=== PATIENT | female | born 1935 | race Caucasian/White ===

== ENCOUNTER 2021-01-08 13:54 | Inpatient (IN) | payer OTHER, MEDICARE ==
[~2021-01-08] VITALS: Ht 162.6 cm; Wt 41.7 kg
[2021-01-08 14:00] VITALS: BP_SYST 113
--- NOTE | 2021-01-08 14:12 | NUR ---
Pt ARNALDO with complaints of unwitnessed fall from her living facility. Unable to obtain any other information from the patient. She is kicking and biting staff and screaming for her "mom". Moving all extremities equal and has no complaints of pain. Unable to obtain vital signs due to patient not cooperating. No deformities or bruising noted.
--- NOTE | 2021-01-08 14:20 | NUR ---
PT BIBA FROM [facility] FOR LEFT SIDED RIB PAIN. PER EMS PT HAD AN UNWITNESSED FALL AT FACILITY, PT IS ALTERED UPON ARRIVAL, AGRESSIVE WITH STAFF. PT HAD COMPLAINED OF RIB PAIN. AAOX1, V/S STABLE UPON ARRIVAL
--- NOTE | 2021-01-08 14:30 | NUR ---
ER DR. ROSS AT THE BEDSIDE EXAMINING PT
[2021-01-08] MEDS ORDERED: LORazepam 2 MG/ML VIAL IM ONE ×3 (14:45→22:00)
[2021-01-08] MEDS ORDERED: KETOROLAC TROMETHAMINE 60 MG/2 ML VIAL IM ONE (14:45)
--- NOTE | 2021-01-08 14:45 | NUR ---
Security at bedside. Pt screaming, hitting and attempting to bite staff.
--- NOTE | 2021-01-08 14:46 | NUR ---
IM Ativan and Toradol given.
--- NOTE | 2021-01-08 15:00 | NUR ---
Xray at bedside. Pt is combative and not able to complete xray.
[2021-01-08] MEDS ORDERED: GABA-580 PO (15:35)
[2021-01-08] MEDS ORDERED: LORA-258 PO (15:35)
[2021-01-08] MEDS ORDERED: SIMV-43 PO (15:35)
[2021-01-08] MEDS ORDERED: CIPR-260 PO (15:35)
[2021-01-08] MEDS ORDERED: CARB1TAB10 PO (15:35)
[2021-01-08] MEDS ORDERED: POLY119P2 PO (15:35)
[2021-01-08] MEDS ORDERED: ACET500C21 PO (15:35)
[2021-01-08] MEDS ORDERED: DOCU-192 PO (15:35)
[2021-01-08] MEDS ORDERED: PIMA34CA PO (15:35)
[2021-01-08] MEDS ORDERED: LOSA50TA28 PO (15:35)
[2021-01-08] MEDS ORDERED: METO25TA6 PO (15:35)
--- NOTE | 2021-01-08 15:35 | NUR ---
Medication reconciliation completed with information provided by ABA DYER. Any prior medication reconciliation on file was reviewed and corrected.
--- NOTE | 2021-01-08 15:40 | NUR ---
xray at at bedside. Pt combative and not able to do xray.
--- NOTE | 2021-01-08 15:48 | NUR ---
SON AT THE BEDSIDE
--- NOTE | 2021-01-08 15:50 | NUR ---
PORTABLE X-RAY AT THE BEDSIDE
--- NOTE | 2021-01-08 16:33 | NUR ---
Patient transported to radiology via GURNEY, accompanied by STAFF.
[2021-01-08] MEDS ORDERED: cefTRIAXone 1 GM IVPB PREMIX 50 ML IV ONE (17:15)
[2021-01-08 17:29] LABS: BILIRUBIN,URINE NEGATIVE (NEGATIVE); BLOOD, URINE NEGATIVE (NEGATIVE); CLARITY/URINE CLEAR (CLEAR); COLOR,URINE YELLOW (YELLOW); GLUCOSE,URINE NEGATIVE (NEGATIVE); KETONES,URINE TRACE (NEGATIVE); LEUKOCYTE ESTERASE ,URINE NEGATIVE (NEGATIVE); NITRITE, URINE NEGATIVE (NEGATIVE); PROTEIN URINE NEGATIVE (NEGATIVE); UROBILINOGEN,URINE 0.2 (0.2-1.0)
--- NOTE | 2021-01-08 17:30 | NUR ---
# 20 gauge angiocath placed to RFA. Use of asceptic technique. Opsite placed over site. Blood return noted. Blood for lab drawn from site. Flushed with 10 cc of normal saline. No evidence of infiltration noted. Patient tolerated well.
[2021-01-08 18:01] LABS: BASOPHILS # (AUTO) 0.1 K/uL (0.0-0.2); BASOPHILS % (AUTO) 0.6 % (0.0-2.0); HEMATOCRIT 33.7 % (36-48); HEMOGLOBIN 11.2 g/dL (12.0-16.0); LYMPHOCYTES # (AUTO) 0.9 K/uL (1.0-5.5); LYMPHOCYTES % (AUTO) 6.2 % (20.5-51.5); MEAN CORPUSCULAR HEMOGLOBIN 31 pg (27-31); MEAN CORPUSCULAR HGB CONC 33 % (32-36); MEAN CORPUSCULAR VOLUME 93 fL (79.0-98.0); MONOCYTES # (AUTO) 0.7 K/uL (0.0-1.0); MONOCYTES % (AUTO) 4.7 % (1.7-9.3); NEUTROPHILS # (AUTO) 13.1 K/uL (1.8-7.7); NEUTROPHILS % (AUTO) 88.5 % (40.0-70.0); PLATELET COUNT (AUTO) 237 K/uL (130-430); RED BLOOD CELL COUNT(AUTO) 3.61 MIL/uL (4.2-6.2); RED CELL DISTRIBUTION WIDTH 12.9 % (9.0-15.0); WHITE BLOOD COUNT (AUTO) 14.8 K/uL (4.8-10.8)
[2021-01-08 18:03] LABS: ANION GAP 10 (5-15); CALCIUM 8.4 mg/dL (8.4-11.0); CHLORIDE 104 mmol/L (98-107); CREATININE 0.85 mg/dL (0.55-1.30); GLUCOSE 98 mg/dL (70-99); POTASSIUM 3.7 mmol/L (3.5-5.1); SODIUM SERUM 138 mmol/L (136-145); UREA NITROGEN, BLOOD 16 mg/dL (8-21)
--- NOTE | 2021-01-08 18:06 | NUR ---
Patient transported to radiology via GURNEY, accompanied by STAFF.
[2021-01-08 18:10] LABS: ALANINE AMINOTRANSFERASE 6 U/L (12-78); ALBUMIN 3.6 g/dL (3.4-4.8); ASPARTATE AMINOTRANSFERASE 18 U/L (10-37); TOTAL BILIRUBIN 0.8 mg/dL (0.0-1.0)
--- NOTE | 2021-01-08 18:18 | NUR ---
ADMISSION ORDERS RECEIVED FROM DR. DONOVAN
--- NOTE | 2021-01-08 18:20 | NUR ---
CALL FOR BED PLACEMENT, TAWANA BLANCA. CHARGE NURSE TO CALL BACK
--- NOTE | 2021-01-08 19:11 | NUR ---
LAB AT THE BEDSIDE FOR LACTIC #2 DRAW
--- NOTE | 2021-01-08 19:16 | NUR ---
REPORT GIVEN TO DELVIN CARROLL FOR CONTINUING CARE
--- NOTE | 2021-01-08 19:55 | NUR ---
Patient will be admitted to care of Dr. Rodriguez. Admitted to TELE unit. Will go to room 132A. Belongings list completed. Complete and up to date summary report printed. SBAR report to be given at bedside with opportunity for questions.
[2021-01-08 20:30] VITALS: BP_SYST 162
--- NOTE | 2021-01-08 20:32 | NUR ---
ADMISSION NOTE Received patient from ER via myranda, received report from DELVIN Nickerson. Patient admitted with diagnosis of Multiple Falls,LeftRib Fracture. Patient oriented to hospital routine, call light, toileting and safety-patient verbalized understanding.
--- NOTE | 2021-01-08 20:45 | NUR ---
INITIAL NOTES: PT IS AGITATED ; RESTLESS ; PT IS ON O2 2L NC SAT ABOVE 95% ; BP IS SLIGHTLY HIGH WILL RECHECK IF NEEDED WILL NOTIFY MD ; ASSESSMENT DONE ; NOTICED MULTIPLE DISCOLORATION TO LUKE ARMS ; LEFT LATERAL CHEST/ ABDOMEN ; LUKE KNEES WITH DRY SCABS ; WILL TAKE PICTURES LATER. PT HAS SUBCUTANEOUS AIR . ABLE TO FEEL IT ON THE LEFT CHEST , PT HAS PNEUMOTHORAX 20-25% ; WILL KEEP PT ON CONTINUOS PULSE OX , BED IN LOW AND LOCK POSITION , CALL GALDAMEZ IN REACH ; BED ALARM IS ON .
--- NOTE | 2021-01-08 21:36 | NUR ---
Paged Dr. Rodriguez
[2021-01-08] MEDS ORDERED: LevALBUTEROL HCL 1.25 MG/0.5 ML *CONC.* VIAL.NEB (XOPENEX CONC.) INH PRN (22:00)
[2021-01-08] MEDS ORDERED: DOCUSATE SODIUM 100 MG CAPSULE PO PRN (22:00)
[2021-01-08] MEDS: LORazepam 1 MG TABLET PO SCH (22:00)
--- NOTE | 2021-01-08 22:16 | NUR ---
MD CALLED BACK : TALKED WITH DR GONZALEZ FRONT DESK ATTENDANT FOR PULMO , NOTIFIED MD ABOUT THE LEFT 6TH AND 7TH RIB FRACTURE, READ HIM CT CHEST RESULT . NOTIFIED THE CURRENT VITALS SIGNS . MD STATED IF SATURATION DROPS CALL HIM OR MD WILL COME AND SEE THE PT IN THE MORNING
[2021-01-08 22:25] VITALS: BP_SYST 112
--- NOTE | 2021-01-08 22:25 | NUR ---
Paged Dr. Rodriguez
[2021-01-08] MEDS ORDERED: AZITHROMYCIN 500 MG/VIAL (ZITHROMAX) IV ONE (22:48)
[2021-01-08] MEDS ORDERED: KCL 20 mEq in D5NS 1000 mL 1,000 ML IV ONE (22:48)
[2021-01-08] MEDS: KCL 20 mEq in D5NS 1000 mL 1,000 ML IV SCH (22:56)
[2021-01-08 22:58] LABS: CKMB RELATIVE INDEX 1.5 (0.0-2.9); CREATINE KINASE MB 6.3 ng/mL (0-3.6)
[2021-01-08] MEDS: ENOXAPARIN SODIUM 40 MG/0.4 ML SYRINGE SUBCUT SCH (23:02)
[2021-01-08] MEDS: CARBIDOPA/LEVODOPA 25/100 MG TABLET PO SCH (23:03)
[2021-01-08] MEDS: traMADol HCL HCL 50 MG TABLET (ULTRAM) PO SCH (23:03)
[2021-01-08] MEDS: METOPROLOL TARTRATE 25 MG TABLET PO SCH (23:05)
[2021-01-08] MEDS: AZITHROMYCIN 500 MG in NS 250 ML IV SCH (23:06)
--- NOTE | 2021-01-08 23:14 | NUR ---
Paged Dr. Rodriguez
--- NOTE | 2021-01-08 23:18 | NUR ---
MD CALLED : DR DONOVAN CALLED AND NOTIFIED THAT PT IS VERY AGITATED AFTER ATIVAN 1 MG IM , AND GETTING OUT OF BED , PULLING IV AND TELEMONITOR . MD ORDERED SITTER AT ED SIDE ; CALLED BACK AND GAVE ORDER FOR HALDOL 3 MG IM X1 NOW .
--- NOTE | 2021-01-08 23:20 | NUR ---
HIGH ALERT NOTE: Called back at [phone] identified within the medical roster to verify physician authenticity.
[2021-01-08] MEDS ORDERED: HALOPERIDOL LACTATE 5 MG/ML VIAL IM ONE (23:30)
--- NOTE | 2021-01-08 23:50 | NUR ---
PHAM CATH: # 16 FR Pham catheter with 10 cc bulb inserted with use of sterile technique. Bulb inflated with 10 cc sterile water. Immediate return of 175 cc yellow color urine noted. Bedside drainage bag placed below level of bladder. Urine sample collected and sent to lab as per protocol , Pt tolerated procedure well.
[2021-01-09] MEDS: LevALBUTEROL HCL 1.25 MG/0.5 ML *CONC.* VIAL.NEB (XOPENEX CONC.) INH SCH ×4 (00:09→23:16)
[2021-01-09 01:59] LABS: BILIRUBIN,URINE NEGATIVE (NEGATIVE); BLOOD, URINE NEGATIVE (NEGATIVE); CLARITY/URINE CLEAR (CLEAR); COLOR,URINE YELLOW (YELLOW); GLUCOSE,URINE NEGATIVE (NEGATIVE); KETONES,URINE NEGATIVE (NEGATIVE); LEUKOCYTE ESTERASE ,URINE NEGATIVE (NEGATIVE); NITRITE, URINE NEGATIVE (NEGATIVE); PH,URINE 5.5 (5.0-8.0); PROTEIN URINE NEGATIVE (NEGATIVE); UROBILINOGEN,URINE 0.2 (0.2-1.0)
[2021-01-09 02:00] VITALS: BP_SYST 119
--- NOTE | 2021-01-09 04:00 | NUR ---
NEW IV; PT PULLED OUT IV ; CATH TIP IS INTACT ; DRESSING APPLIED TO THE SITE ; NEW IV STARTED TO R FA 22 G, X 1 ATTEMPT ; SITTER AT BEDSIDE . Addendum: 01/09/21 at 0747 by Sade Henning RN pictures taken
--- NOTE | 2021-01-09 04:11 | NUR ---
Consultation Paged Reason for Consultation: left side pneumothorax Was consult called: Y Person who was notified: Dr. Thornton is concrete mixing truck driver for Dr. King Consulting Physician: Dr. King Ordering Physician: Michael
[2021-01-09] MEDS: CARBIDOPA/LEVODOPA 25/100 MG TABLET PO SCH ×6 (07:02→22:00)
[2021-01-09] MEDS: traMADol HCL HCL 50 MG TABLET (ULTRAM) PO SCH ×3 (07:02→18:29)
--- NOTE | 2021-01-09 07:25 | NUR ---
CLOSING NOTES : PT IS SLEEPING ON AND OFF; NOT IN ANY ACUTE DISTRESS; SITTER AT BEDSIDE ; ALL NEEDS ATTENDED ; PHAM IS INTACT AND DRAINING YELLOW COLOR URINE TO GRAVITY . IV IS INTACT AD INFUSING IV FLUID PER ORDER .REPORT GIVEN TO RN AT BEDSIDE .
[2021-01-09] MEDS ORDERED: POLYETHYLENE GLYCOL 3350, 17 GM/ POWD.PACK PO PRN (07:30)
[2021-01-09 07:57] LABS: BASOPHILS # (AUTO) 0.1 K/uL (0.0-0.2); BASOPHILS % (AUTO) 1.2 % (0.0-2.0); EOSINOPHILS % (AUTO) 0.1 % (0.0-4.0); HEMATOCRIT 32.7 % (36-48); LYMPHOCYTES # (AUTO) 1.6 K/uL (1.0-5.5); LYMPHOCYTES % (AUTO) 19.6 % (20.5-51.5); MEAN CORPUSCULAR HEMOGLOBIN 32 pg (27-31); MEAN CORPUSCULAR HGB CONC 34 % (32-36); MEAN CORPUSCULAR VOLUME 94 fL (79.0-98.0); MONOCYTES # (AUTO) 0.5 K/uL (0.0-1.0); MONOCYTES % (AUTO) 5.6 % (1.7-9.3); NEUTROPHILS # (AUTO) 6.1 K/uL (1.8-7.7); NEUTROPHILS % (AUTO) 73.5 % (40.0-70.0); PLATELET COUNT (AUTO) 223 K/uL (130-430); RED BLOOD CELL COUNT(AUTO) 3.47 MIL/uL (4.2-6.2); RED CELL DISTRIBUTION WIDTH 12.8 % (9.0-15.0); WHITE BLOOD COUNT (AUTO) 8.4 K/uL (4.8-10.8)
[2021-01-09 08:00] VITALS: BP_SYST 124
[2021-01-09 08:19] LABS: ANION GAP 11 (5-15); CALCIUM 8.3 mg/dL (8.4-11.0); CHLORIDE 107 mmol/L (98-107); CREATININE 0.91 mg/dL (0.55-1.30); GLUCOSE 134 mg/dL (70-99); POTASSIUM 3.6 mmol/L (3.5-5.1); SODIUM SERUM 141 mmol/L (136-145); UREA NITROGEN, BLOOD 17 mg/dL (8-21)
[2021-01-09] MEDS ORDERED: PIMAVANSERIN TARTRATE 34 MG PO SCH (09:00)
[2021-01-09] MEDS: LOSARTAN POTASSIUM 50 MG TABLET (COZAAR) PO SCH (09:00)
--- NOTE | 2021-01-09 09:56 | NUR ---
Nutrition Update Stefan Scale 13 noted. Pt admitted for multiple falls, L rib fracture. Diet: mechanical soft BMI: 15.9 kg/m2 RD to follow per nutrition care standards.
--- NOTE | 2021-01-09 10:34 | NUR ---
THORACIC SURGEON CONSULT DR WILD WAS NOTIFED BY DR GONZALEZ REGARDING THORACIC CONSULT RE- CHEST TUBE INSERTION
[2021-01-09] MEDS: LORazepam 1 MG TABLET PO SCH ×2 (11:08→20:11)
[2021-01-09 12:50] VITALS: BP_SYST 108
--- NOTE | 2021-01-09 13:08 | NUR ---
CONSULTATION PAGED/CALLED Reason for Consultation: [] PTX; PIG TAIL PLACEMENT Person Who was Notified: [] DR NAGY Consulting Physician: [] DR NAGY Registered Nurse Maternity Specialty: [] RADIOLOGIST Ordering Physician: [] DR GONZALEZ
--- NOTE | 2021-01-09 13:47 | NUR ---
NOTE Pt back from CT scan - unable to do chest tube placement (as lack of equipment). Continue wall suction per Dr Thornton. Dr Thornton will see pt tomorrow morning.
--- NOTE | 2021-01-09 15:17 | NUR ---
Dietitian Recommendations * Consider GI consult and ST swallow eval * Consider NPO LP, RD Please refer to Nutrition Assessment for details. Addendum: 01/09/21 at [address] Amended: Links added.
[2021-01-09 16:00] VITALS: BP_SYST 127
--- NOTE | 2021-01-09 16:50 | NUR ---
Note Dr Rodriguez came to pt's bedside and assessed pt. Dr Rodriguez spoke to pt's son Alex You at bedside and explained the need for PICC placement for nutrition (TPN) and IVF's at this time. Pt's son Alex signed consent at this time. Pt's chest tube was placed by Dr Thornton at bedside at 0930am. Pt's chest tube connected to wall suction. Pt's Fox catheter intact and draining well. IV in right forearm intact and patent. Pt has been next to nurses' station for close observation all shift. Bilateral wrist restraints intact and holding pt's hands down. Call light within reach.
[2021-01-09] MEDS: KCL 20 mEq in D5NS 1000 mL 1,000 ML IV SCH (17:11)
[2021-01-09] MEDS ORDERED: *TPN PER PHARMACY XX PRN (17:15)
--- NOTE | 2021-01-09 17:30 | NUR ---
Note Pt was given her Sinemet PO medications crushed and in apple sauce whenever pt woke up and was able to eat a few bites. Pt has been in and out of sleep all shift.
[2021-01-09 18:07] LABS: PROTHROMBIN TIME 10.4 SECS (9.5-12.5)
--- NOTE | 2021-01-09 19:30 | NUR ---
OPENING NOTE RECEIVED CARE OF PT AND SBAR REPORT. PT IS CONFUSED, IN BILATERAL SOFT WRIST RESTRAINTS WITH NO S/S OF IMPAIRED CIRCULATION OR INJURY TO BUE. PT HAS CHEST TUBE, INTACT AND DRAINING. IVF INFUSING AT ORDERED RATE. PHAM CATHETER IS INTACT AND DRAINING TO GRAVITY. VSS. NO S/S OF ACUTE DISTRESS NOTED. WILL CONTINUE TO MONITOR.
[2021-01-09 20:00] VITALS: BP_SYST 131
[2021-01-09] MEDS: SIMVASTATIN 20 MG TABLET PO SCH (20:10)
[2021-01-09] MEDS: PANTOPRAZOLE SODIUM 40 MG/VIAL (PROTONIX) IVP SCH (20:11)
[2021-01-09] MEDS: GABAPENTIN 300 MG CAPSULE PO SCH (20:11)
[2021-01-09] MEDS: METOPROLOL TARTRATE 25 MG TABLET PO SCH (20:11)
[2021-01-09] MEDS: ENOXAPARIN SODIUM 40 MG/0.4 ML SYRINGE SUBCUT SCH (20:12)
[2021-01-09] MEDS: cefTRIAXone 1 GM in D5W 50 ML IV SCH (20:12)
--- NOTE | 2021-01-09 20:12 | NUR ---
MED PASS PT TOOK SCHEDULED MEDICATIONS CRUSHED WITH APPLESAUCE. BILATERAL RESTRAINTS ARE IN PLACE. SITTER IS AT BEDSIDE. WILL MONITOR.
[2021-01-09] MEDS: ACETAMINOPHEN 325 MG TABLET PO PRN (20:14)
[2021-01-09] MEDS: AZITHROMYCIN 500 MG in NS 250 ML IV SCH (22:30)
[2021-01-10] VITALS: BP_SYST 133
[2021-01-10] MEDS: traMADol HCL HCL 50 MG TABLET (ULTRAM) PO SCH ×6 (01:39→19:03)
--- NOTE | 2021-01-10 04:50 | NUR ---
High Alert Medication Ativan 1mg IVP for PICC placement. Dr Rodriguez was called back at phone number listed for MD in MD book.
[2021-01-10] MEDS: CARBIDOPA/LEVODOPA 25/100 MG TABLET PO SCH ×6 (06:00→21:17)
[2021-01-10] MEDS: KCL 20 mEq in D5NS 1000 mL 1,000 ML IV SCH ×2 (06:05→21:21)
[2021-01-10] MEDS: LevALBUTEROL HCL 1.25 MG/0.5 ML *CONC.* VIAL.NEB (XOPENEX CONC.) INH SCH ×3 (07:00→23:30)
[2021-01-10] MEDS: LORazepam 1 MG TABLET PO SCH ×2 (07:53→21:18)
[2021-01-10] MEDS: LOSARTAN POTASSIUM 50 MG TABLET (COZAAR) PO SCH (07:53)
[2021-01-10] MEDS: PANTOPRAZOLE SODIUM 40 MG/VIAL (PROTONIX) IVP SCH ×2 (07:53→21:19)
[2021-01-10 08:00] VITALS: BP_SYST 155
--- NOTE | 2021-01-10 09:45 | NUR ---
Note Pt's grand daughter Yoly came to bedside to see the pt.
[2021-01-10 12:00] VITALS: BP_SYST 137
[2021-01-10] MEDS ORDERED: LORazepam 2 MG/ML VIAL IVP ONE (12:00)
[2021-01-10 12:18] LABS: ANION GAP 11 (5-15); CHLORIDE 109 mmol/L (98-107); POTASSIUM 4.3 mmol/L (3.5-5.1); SODIUM SERUM 144 mmol/L (136-145)
[2021-01-10 12:19] LABS: ALANINE AMINOTRANSFERASE 11 U/L (12-78); ALBUMIN 2.8 g/dL (3.4-4.8); CALCIUM 8.1 mg/dL (8.4-11.0); CREATININE 0.59 mg/dL (0.55-1.30); GLUCOSE 103 mg/dL (70-99); PHOSPHORUS 2.9 mg/dL (2.7-4.5); TOTAL BILIRUBIN 0.6 mg/dL (0.0-1.0); UREA NITROGEN, BLOOD 10 mg/dL (8-21)
[2021-01-10 12:20] LABS: ASPARTATE AMINOTRANSFERASE 29 U/L (10-37)
[2021-01-10 12:28] LABS: TRIGLYCERIDES 71 mg/dL (30-150)
--- NOTE | 2021-01-10 14:20 | NUR ---
Note Medications given throughout shift when pt awake and able to swallow without difficulty.
--- NOTE | 2021-01-10 14:54 | NUR ---
Nutrition F/U RD reviewed pt's current EMR record including diet Hx, physician notes, nursing notes, pertinent labs/meds/procedures, care trends, and care activity. Admission Dx: Multiple falls, L rib fracture PMH: osteoporosis, Parkinson's Dz dementia and HTN per physician notes Pt also found w/ L-sided pneumothorax per physician notes SARS-CoV-2 Ag (Rapid) Negative 01/08 Current Diet Order/Nutrition Support: Mechanical soft x1 day Subjective Info: New TPN per pharmacy notification received 01/09/21 6594. Pt was seen for full Nutrition Assessment yesterday. RD visited pt at bedside this afternoon while sitter and BORING MACHINE OPERATOR were present -- pt was very agitated and awaiting pain meds per BORING MACHINE OPERATOR report. Bedscale wt taken: 91.1# -- c/w documented wt record. RD called an spoke w/ pharmD at [address] rec for TPN -- pharmD acknowledged. Per EMR review, plans for PICC placement; pt was able to take meds crushed w/ applesauce; pt able to swallow meds without difficulty; pt continues w/ bilateral wrist restraints; confused/disoriented/restless/agitated; PO intake average of 0% x3 meals; abd is soft and non-distended w/ active bowel sounds; no BM noted; Stefan scale: 15, no PIs noted. Plans for TPN support alongside PO diet are appropriate at this time. Pertinent Medications: lovenox, KCl/D5%/NaCl IV at 60 ml/hr (245 kcal/day), protonix IV Pertinent Labs: No new labs -- 01/09: BG 134 H Ht: 5'4"/64" Wt: 92#/42 kg (01/09) -- *wt appears stable Body Mass Index: 15.79 kg/m2 %IBW: 77 Sterling/Adjusted Body Weight: IBW: 120#/55 kg Weight Status: Emaciated Estimated Energy Expenditure (kcals/day) 3425-5945 kcal/day (30-35 kcal/kg CBW for wt gain, trauma) Estimated Protein Required (g/day) 50-63 gm/day (1.2-1.5 gm/kg CBW for wt gain promotion) Estimated Fluid Required (l/day) 1.3-1.5 L/day (1 ml/kcal/day for maintenance) Problem/Etiology/Signs/Symptoms Malnutrition related to underwt status as evidenced by BMI: 15.9 kg/m2 and 77% of IBW. *ongoing Increased nutritional needs related to trauma as evidenced by multiple falls and estimated nutritional requirements for trauma. *ongoing Suboptimal nutritional intakes related to suspected lack of appetite/cognitive limitations as evidenced by negligible PO intake records/Parkinson's Dz dementia. *new Expected Outcomes/Goals - Monitor appetite and PO intakes w/ goal of pt meeting at least 75% of estimated nutritional needs, labs trending WNL, normal GI function, and skin integrity/wt maintenance Dietitian Recommendations * Recommend mechanical soft diet w/ Ensure Enlive TID (ONS provides 1050 kcal/day, 60 gm protein/day) * Encourage increase PO intakes * TPN D40%, AA10% at 45 ml/hr (goal rate), IL20% at 10 ml/hr daily via central line Provides: 1430 kcal/day, 54 gm protein/day, 1320 ml total volume/day, and GIR: 3.6 gm CHO/kg/min Meets: 97% of upper end of estimated caloric needs and 108% of lower end of estimated protein needs Follow Up High Risk: F/U in 2-3 days
--- NOTE | 2021-01-10 15:05 | NUR ---
Note PICC RN at bedside inserting PICC at this time.
--- NOTE | 2021-01-10 15:09 | NUR ---
Dietitian Recommendations * Recommend mechanical soft diet w/ Ensure Enlive TID (ONS provides 1050 kcal/day, 60 gm protein/day) * Encourage increase PO intakes * TPN D40%, AA10% at 45 ml/hr (goal rate), IL20% at 10 ml/hr daily via central line Provides: 1430 kcal/day, 54 gm protein/day, 1320 ml total volume/day, and GIR: 3.6 gm CHO/kg/min Meets: 97% of upper end of estimated caloric needs and 108% of lower end of estimated protein needs LP, RD Please refer to Nutrition F/U for details.
--- NOTE | 2021-01-10 15:28 | NUR ---
Note PICC placed in MAMTA. X-ray completed - PICC okay to use per PICC RN.
[2021-01-10 16:00] VITALS: BP_SYST 130
--- NOTE | 2021-01-10 16:10 | NUR ---
Note pt asleep at this time. Pt was given Ativan 1mg IVP for PICC placement. Pt stable. Pt was checked on q1' and PRN all shift for needs and care. Pt next to nurses' station all shift for close observation. Pt's bed in low position and bed alarm on all shift. Call light within reach. Fox catheter intact and draining well. Pt's bilateral wrist restraints on and keeping pt in bed and from pulling/tugging on chest tube (left), IV in right forearm or Fox catheter. Call light within reach.
--- NOTE | 2021-01-10 16:32 | NUR ---
Note Blood sugar not done as pt has not started on TPN at this time.
--- NOTE | 2021-01-10 18:25 | NUR ---
Note Pt still asleep and has O2 sats at 97% with O2 at 2L/nc. Pt's chest tube on left chest wall intact and has wall suction. No needs noted at this time. Addendum: 01/10/21 at 1827 by Isabelle Friend RN was pt's sitter all 12 hour shift.
--- NOTE | 2021-01-10 18:44 | NUR ---
DR DONOVAN AT PT'S BEDSIDE ASSESSING PT AT THIS TIME.
--- NOTE | 2021-01-10 19:05 | NUR ---
Opening note Received patient awake, restless and I observed DELVIN Walton holding patient's left hand while she gave report; she was almost unable to step away from patient's side. Patient has chest tube, dressing at top of left chest is secure in place, no leaking noted. There is scant amount of sanguinous fluid/blood noted at start of insertion site . No drainage noted in chamber, there is bubbling. Bilateral wrist restraints and no sign of injury noted. IVF infusing via IV to RFA. Side rails are up 3x, bed is locked in lowest position and bed alarm on.
--- NOTE | 2021-01-10 19:20 | NUR ---
Dr. Rodriguez rounds Dr. Rodriguez at bedside while Isabelle, RN and I are in room with patient for SBAR. He was made of aware of present status; she is restless, tugging, reaching and attempting to pull at tubes, lines. Isabelle is holding patient's hand. Dr. Rodriguez provided new medication orders Risperidone 0.5mg PO BID; TORB
[2021-01-10 20:00] VITALS: BP_SYST 132
[2021-01-10] MEDS ORDERED: [UNRECOGNIZED DRUG - OTHER] IV SCH ×7 (21:00)
[2021-01-10] MEDS ORDERED: MVI IV SCH ×7 (21:00)
[2021-01-10] MEDS ORDERED: SODIUM ACETATE IV SCH ×7 (21:00)
[2021-01-10] MEDS ORDERED: TPN PERIPHERAL IV SCH ×7 (21:00)
[2021-01-10] MEDS ORDERED: CALCIUM CHLORIDE IV SCH ×7 (21:00)
[2021-01-10] MEDS: GABAPENTIN 300 MG CAPSULE PO SCH (21:17)
[2021-01-10] MEDS: cefTRIAXone 1 GM in D5W 50 ML IV SCH (21:17)
[2021-01-10] MEDS: METOPROLOL TARTRATE 25 MG TABLET PO SCH (21:18)
[2021-01-10] MEDS: SIMVASTATIN 20 MG TABLET PO SCH (21:19)
[2021-01-10] MEDS: ENOXAPARIN SODIUM 40 MG/0.4 ML SYRINGE SUBCUT SCH (21:24)
[2021-01-10] MEDS: AZITHROMYCIN 500 MG in NS 250 ML IV SCH (21:57)
--- NOTE | 2021-01-10 21:59 | NUR ---
meds Due meds given; Hung TPN, IVF and administered antibiotics via new PIIC line and infusing well, tolerating. Accucheck result was 114 mg/dL. Tablets were crushed and mixed in applesauce and she took one spoon of meds and the second serving she held in her mouth then spit out. She refused water. She was yelling, grabbing with her hands and putting resistance as I and two staff members tried to reposition.
--- NOTE | 2021-01-10 23:00 | NUR ---
sleeping Patient is calm, eyes are closed and she is no longer reaching and grabbing onto linen, attempting to pull on tubes.
[2021-01-11] VITALS (7 sets, daily range): BP systolic 107–153
[2021-01-11] MEDS: traMADol HCL HCL 50 MG TABLET (ULTRAM) PO SCH ×4 (00:57→17:55)
[2021-01-11] MEDS: ACETAMINOPHEN 325 MG TABLET PO PRN (03:22)
--- NOTE | 2021-01-11 03:25 | NUR ---
Patient care Patient provided w/CHG bath, repositioned, turned. She is restless and she manages to slide down and get diagonally placed across bed. She exhibit signs of mild pain and was given Tylenol. BEETM
[2021-01-11] MEDS: CARBIDOPA/LEVODOPA 25/100 MG TABLET PO SCH ×5 (06:27→21:39)
[2021-01-11 06:55] LABS: ALBUMIN 2.8 g/dL (3.4-4.8); ANION GAP 8 (5-15); ASPARTATE AMINOTRANSFERASE 31 U/L (10-37); CALCIUM 8.1 mg/dL (8.4-11.0); CHLORIDE 109 mmol/L (98-107); CREATININE 0.69 mg/dL (0.55-1.30); GLUCOSE 102 mg/dL (70-99); PHOSPHORUS 2.2 mg/dL (2.7-4.5); SODIUM SERUM 142 mmol/L (136-145); TOTAL BILIRUBIN 0.8 mg/dL (0.0-1.0); UREA NITROGEN, BLOOD 10 mg/dL (8-21)
--- NOTE | 2021-01-11 07:15 | NUR ---
closing note Patient awake, mild restless . Chest tube, dressing at top of left chest is secure in place, no leaking noted. There is scant amount of sanguinous fluid/blood noted at start of insertion site . No drainage noted in chamber, there is bubbling. Bilateral wrist restraints and no sign of injury noted. IVF and TPN infusing via IV to MAMTA. Side rails are up 3x, bed is locked in lowest position and bed alarm on. Morning meds given, Endorsed care
[2021-01-11] MEDS: LevALBUTEROL HCL 1.25 MG/0.5 ML *CONC.* VIAL.NEB (XOPENEX CONC.) INH SCH ×3 (07:18→23:30)
[2021-01-11 07:49] LABS: ALANINE AMINOTRANSFERASE 9 U/L (12-78)
--- NOTE | 2021-01-11 08:15 | NUR ---
Opening Note Patient awake, restless . Chest tube, dressing at top of left chest is secure in place, no leaking noted. There is scant amount of sanguinous fluid/blood noted in chest tube drainage chamber. Bilateral wrist restraints are secured, ecchymoses noted across left forearm, readjusted wrist restraint and applied new dressing to skin tear on right forearm. IVF and TPN infusing via PICC line. Flushed with NS and aspirated for blood return in MAMTA. Side rails are up 3x, bed is locked in lowest position and bed alarm on.
[2021-01-11] MEDS: LORazepam 1 MG TABLET PO SCH ×2 (08:54→21:39)
[2021-01-11] MEDS: LOSARTAN POTASSIUM 50 MG TABLET (COZAAR) PO SCH (08:58)
[2021-01-11] MEDS: PANTOPRAZOLE SODIUM 40 MG/VIAL (PROTONIX) IVP SCH ×2 (08:59→21:36)
--- NOTE | 2021-01-11 11:00 | NUR ---
Rounding Note Pt confused and restless, family at bedside, discussed plan of care, paged to inform of patient agitation and that the pt was spitting out medication, received new orders for IV push and administered new medication order
[2021-01-11] MEDS ORDERED: NALOXONE HCL 0.4 MG/ML AMP (NARCAN) IVP PRN (11:15)
--- NOTE | 2021-01-11 11:16 | NUR ---
HIGH ALERT NOTE: Called Dr. Rodriguez back at [phone] identified within the medical roster to verify physician authenticity. Hernandez JIMENES
[2021-01-11] MEDS: HYDROmorphone 1 MG/ML INJ. CARTRIDGE IVP PRN ×2 (11:49→18:14)
--- NOTE | 2021-01-11 13:10 | NUR ---
Dr. Bowman rounds assessed patient, updates given to MD regarding patient agitation and administration of PRN Dilaudid, received orders for CXR, will follow up.
--- NOTE | 2021-01-11 14:58 | NUR ---
RN Note patient resting in bed, eyes closed , breathing is unlabored, patient is on 3L via nasal cannula at this time, oxygen saturation is 95%, chest tube intact to left anterior chest, to suction, PICC line is patent and infusing well, continuing to monitor the patient, bed in lowest position, three side rails up, restraints in place - ecchymosis to left and right arms noted -, Fox catheter in place, draining to gravity, bed alarm on, fall and aspiration precautions in place.
--- NOTE | 2021-01-11 14:59 | NUR ---
Dr. Rodriguez rounds assessed the patient, updates given to MD regarding patient status, will follow up with any new orders.
--- NOTE | 2021-01-11 18:14 | NUR ---
Agitation the patient was agitated and attempting to pull lines and tubes, the patient was kicking and moaning as well, administered PRN pain medication, immediate effect is that the patient is quiet and calmer.
--- NOTE | 2021-01-11 18:46 | NUR ---
Closing Note Patient is currently asleep and vitals are stable. Chest tube and dressing on the left anterior chest is intact and secured in place. No leaks noted. Scant amount of sanguineous drainage in chest tube chamber. Continuos bumbling noted in chest tube chamber. Bilateral wrist restraints in place. IVF and TPN are infusing through MAMTA PICC line. Three side rails are up, bed in lowest position, call light within reach and bed alarm is on. Bilateral wrist restraints and no sign of injury noted. IVF and TPN infusing via IV to MAMTA.
--- NOTE | 2021-01-11 19:10 | NUR ---
Opening note Received resting in bed, eyes closed. No distress, nonlabored breathing on 4L NC, she is mouth breathier. Patient has chest tube, dressing at top of left chest is secure in place, no leaking noted. No drainage noted in chamber, there is bubbling. Bilateral wrist restraints and no sign of injury noted. IVF infusing via PIIC to MAMTA. Fox catheter drainage bag to gravity. Side rails are up 3x, bed is locked in lowest position and bed alarm on.
[2021-01-11] MEDS ORDERED: K PHOS IV SCH ×9 (21:00)
[2021-01-11] MEDS ORDERED: SODIUM ACETATE IV SCH ×9 (21:00)
[2021-01-11] MEDS ORDERED: TPN PERIPHERAL IV SCH ×9 (21:00)
[2021-01-11] MEDS ORDERED: MVI IV SCH ×9 (21:00)
[2021-01-11] MEDS ORDERED: [UNRECOGNIZED DRUG - OTHER] IV SCH ×9 (21:00)
[2021-01-11] MEDS: cefTRIAXone 1 GM in D5W 50 ML IV SCH (21:31)
[2021-01-11] MEDS: SIMVASTATIN 20 MG TABLET PO SCH (21:35)
[2021-01-11] MEDS: GABAPENTIN 300 MG CAPSULE PO SCH (21:35)
[2021-01-11] MEDS: METOPROLOL TARTRATE 25 MG TABLET PO SCH (21:38)
[2021-01-11] MEDS: KCL 20 mEq in D5NS 1000 mL 1,000 ML IV SCH (21:39)
--- NOTE | 2021-01-11 21:39 | NUR ---
Meds Due meds given; Tablets were crushed and mixed in applesauce and she took the applesauce yet held it in her mouth, it took a few minutes her to swallow and she refused to take a sip of water. Hung TPN, IVF and administered antibiotics via PIIC line and infusing well, tolerating.
[2021-01-11] MEDS: ENOXAPARIN SODIUM 40 MG/0.4 ML SYRINGE SUBCUT SCH (21:41)
[2021-01-11] MEDS: AZITHROMYCIN 500 MG in NS 250 ML IV SCH (22:17)
[2021-01-12] MEDS: HYDROmorphone 1 MG/ML INJ. CARTRIDGE IVP PRN ×3 (00:20→21:07)
--- NOTE | 2021-01-12 00:20 | NUR ---
Pain med Patient is awake. Dilaudid was given for severe pain as she is demonstrating signs of severe pain; crying, facial grimacing. Also she does not readily make an effort to swallow; WCTM
[2021-01-12 00:39] VITALS: BP_SYST 134
[2021-01-12] MEDS: traMADol HCL HCL 50 MG TABLET (ULTRAM) PO SCH ×4 (06:32→17:43)
[2021-01-12] MEDS: CARBIDOPA/LEVODOPA 25/100 MG TABLET PO SCH ×5 (06:32→21:11)
[2021-01-12 07:00] LABS: BASOPHILS % (AUTO) 0.3 % (0.0-2.0); EOSINOPHILS % (AUTO) 0.1 % (0.0-4.0); HEMATOCRIT 29.2 % (36-48); HEMOGLOBIN 9.5 g/dL (12.0-16.0); LYMPHOCYTES # (AUTO) 0.9 K/uL (1.0-5.5); LYMPHOCYTES % (AUTO) 8.1 % (20.5-51.5); MEAN CORPUSCULAR HEMOGLOBIN 32 pg (27-31); MEAN CORPUSCULAR HGB CONC 33 % (32-36); MEAN CORPUSCULAR VOLUME 97 fL (79.0-98.0); MONOCYTES # (AUTO) 0.4 K/uL (0.0-1.0); MONOCYTES % (AUTO) 3.8 % (1.7-9.3); NEUTROPHILS # (AUTO) 9.3 K/uL (1.8-7.7); NEUTROPHILS % (AUTO) 87.7 % (40.0-70.0); PLATELET COUNT (AUTO) 186 K/uL (130-430); RED BLOOD CELL COUNT(AUTO) 3.01 MIL/uL (4.2-6.2); RED CELL DISTRIBUTION WIDTH 12.7 % (9.0-15.0); WHITE BLOOD COUNT (AUTO) 10.7 K/uL (4.8-10.8)
--- NOTE | 2021-01-12 07:00 | NUR ---
closing note Patient resting in bed, eyes open, in/out of sleep. She is calming down. was restless after blood draw. No distress, nonlabored breathing on 4L NC. Patient has chest tube, dressing at top of left chest is secure in place, no leaking noted. No drainage noted in chamber, there is bubbling. Bilateral wrist restraints and no sign of injury noted. IVF infusing via PIIC to MAMTA. Fox catheter drainage bag to gravity. Side rails are up 3x, bed is locked in lowest position and bed alarm on.
[2021-01-12] MEDS: LevALBUTEROL HCL 1.25 MG/0.5 ML *CONC.* VIAL.NEB (XOPENEX CONC.) INH SCH ×3 (07:20→23:00)
[2021-01-12 07:31] LABS: ALANINE AMINOTRANSFERASE 8 U/L (12-78); ALBUMIN 2.6 g/dL (3.4-4.8); ANION GAP 10 (5-15); ASPARTATE AMINOTRANSFERASE 24 U/L (10-37); CALCIUM 8.2 mg/dL (8.4-11.0); CHLORIDE 107 mmol/L (98-107); CREATININE 0.63 mg/dL (0.55-1.30); GLUCOSE 124 mg/dL (70-99); PHOSPHORUS 2.6 mg/dL (2.7-4.5); POTASSIUM 3.9 mmol/L (3.5-5.1); SODIUM SERUM 142 mmol/L (136-145); TOTAL BILIRUBIN 0.6 mg/dL (0.0-1.0); UREA NITROGEN, BLOOD 18 mg/dL (8-21)
--- NOTE | 2021-01-12 07:50 | NUR ---
Opening note Patient is resting in bed A&Ox 0, does not respond to name, difficult to reorient due to cognitive status. PICC line is in place, and patent, Fox is draining by gravity. Patients body language expresses distress, will follow up with medication. Unable to education patient due to cognitive status. Patient tolerating 2L NC. Bed is in lowest position, sitter is present. Will continue to monitor.
[2021-01-12 08:00] VITALS: BP_SYST 176
[2021-01-12] MEDS: PANTOPRAZOLE SODIUM 40 MG/VIAL (PROTONIX) IVP SCH ×2 (09:12→21:11)
[2021-01-12] MEDS: LOSARTAN POTASSIUM 50 MG TABLET (COZAAR) PO SCH (09:12)
[2021-01-12] MEDS: LORazepam 1 MG TABLET PO SCH ×2 (09:13→21:15)
[2021-01-12 12:10] VITALS: BP_SYST 155
[2021-01-12 16:27] VITALS: BP_SYST 155
--- NOTE | 2021-01-12 19:05 | NUR ---
Closing note Patient is resting in bed A&Ox 0, does not respond to name, difficult to reorient due to cognitive status. PICC line is in place, and patent, Fox is draining by gravity. Patients body language expresses distress, will follow up with medication. Patient tolerating 2L NC. Bed is in lowest position, sitter is present. All needs were met, will endorse report to atomic physics professor.
--- NOTE | 2021-01-12 19:50 | NUR ---
OPENING NOTES: Received report from DELVIN Polanco. Patient resting in bed, AAOx0, breathing evenly and unlabored on 3L of oxygen via NC. Patient has a chest tube on suction. Patient has a PICC line on the MAMTA, patent and benign, IVF and TPN running, patient tolerating them well. Patient has a erickson catheter, secured and draining by gravity. Patient on bilateral wrist restraints due to attempting to pull lines, tubes, to get out of bed, hostile/combative behavior. Educated patient on plan of care, fall/safety/aspiration precaution, call/light system. Patient unable to state understanding due to cognitive limitations. Bed locked, armed, and at lowest position. Will continue to monitor.
[2021-01-12 20:45] VITALS: BP_SYST 162
[2021-01-12] MEDS ORDERED: [UNRECOGNIZED DRUG - OTHER] IV SCH ×9 (21:00)
[2021-01-12] MEDS ORDERED: MVI IV SCH ×9 (21:00)
[2021-01-12] MEDS ORDERED: TPN PERIPHERAL IV SCH ×9 (21:00)
[2021-01-12] MEDS ORDERED: SODIUM ACETATE IV SCH ×9 (21:00)
[2021-01-12] MEDS ORDERED: K PHOS IV SCH ×9 (21:00)
[2021-01-12] MEDS: GABAPENTIN 300 MG CAPSULE PO SCH (21:10)
[2021-01-12] MEDS: SIMVASTATIN 20 MG TABLET PO SCH (21:11)
[2021-01-12] MEDS: METOPROLOL TARTRATE 25 MG TABLET PO SCH (21:24)
[2021-01-12] MEDS: cefTRIAXone 1 GM in D5W 50 ML IV SCH (21:25)
[2021-01-12] MEDS: ENOXAPARIN SODIUM 40 MG/0.4 ML SYRINGE SUBCUT SCH (21:25)
[2021-01-12] MEDS: KCL 20 mEq in D5NS 1000 mL 1,000 ML IV SCH (21:26)
[2021-01-12] MEDS: AZITHROMYCIN 500 MG in NS 250 ML IV SCH (22:29)
--- NOTE | 2021-01-12 23:20 | NUR ---
SPOKE WITH DR. HENNING, NOTIFIED OF CHEST CT W/ CONTRAST RESULTS, MD SAID HE'LL SEE THE PATIENT TOMORROW.
[2021-01-13] VITALS (7 sets, daily range): BP systolic 101–179
--- NOTE | 2021-01-13 02:42 | NUR ---
ROUNDS: Patient resting in bed, eyes closed, breathing evenly and unlabored on 3L of oxygen via NC, however, O2 sat was fluctuating between 88-92%. Oxygen titrated up to 4 liters. O2 sat between 94-96%. No other needs at this time. Fall/safety/aspiration precautions. Will continue to monitor.
[2021-01-13] MEDS: CARBIDOPA/LEVODOPA 25/100 MG TABLET PO SCH ×5 (06:38→23:01)
[2021-01-13] MEDS: traMADol HCL HCL 50 MG TABLET (ULTRAM) PO SCH ×5 (06:39→23:01)
--- NOTE | 2021-01-13 06:47 | NUR ---
CLOSING NOTES: Patient in bed, awake, breathing evenly and unlabored on 4L of oxygen via NC. Due medication were given. Patient tolerated them well. Blood sugar was checked when due. Dilaudid was given at 21:07 last night due to severe pain. Patient tolerated it well. Patient remains on bilateral wrist restraints due to combative behavior, attempting to pull lines/tubes/get out of bed. Hygiene care was done with OYSTER SHIPPER. Wound care was done. No S/S of distress at this time. No other needs at this time. Needs met throughout the shift. Will endorse care to morning shift RN.
[2021-01-13] MEDS: LevALBUTEROL HCL 1.25 MG/0.5 ML *CONC.* VIAL.NEB (XOPENEX CONC.) INH SCH ×3 (07:22→23:30)
--- NOTE | 2021-01-13 07:44 | NUR ---
OPENING NOTE Received report from night nurse. Patient is sleeping in bed at this time. On 2 L nasal cannula and tolerating well with no signs of shortness of breath. PICC line is patent,infusing fluids and TPN as ordered. Chest tube in left chest, no drainage noted. Fox catheter attached, draining by gravity. Bed locked and in lowest position. Call light within reach. Safety precautions in place. Bed alarm on. Will continue to monitor.
[2021-01-13 08:07] LABS: ALANINE AMINOTRANSFERASE 11 U/L (12-78); ALBUMIN 2.4 g/dL (3.4-4.8); ANION GAP 8 (5-15); ASPARTATE AMINOTRANSFERASE 15 U/L (10-37); CALCIUM 8.2 mg/dL (8.4-11.0); CHLORIDE 103 mmol/L (98-107); CREATININE 0.58 mg/dL (0.55-1.30); GLUCOSE 166 mg/dL (70-99); PHOSPHORUS 2.5 mg/dL (2.7-4.5); POTASSIUM 3.5 mmol/L (3.5-5.1); SODIUM SERUM 138 mmol/L (136-145); TOTAL BILIRUBIN 0.4 mg/dL (0.0-1.0); UREA NITROGEN, BLOOD 18 mg/dL (8-21)
[2021-01-13] MEDS: PANTOPRAZOLE SODIUM 40 MG/VIAL (PROTONIX) IVP SCH ×2 (08:29→20:35)
[2021-01-13] MEDS: LORazepam 1 MG TABLET PO SCH ×2 (08:30→20:36)
[2021-01-13] MEDS: LOSARTAN POTASSIUM 50 MG TABLET (COZAAR) PO SCH (08:30)
--- NOTE | 2021-01-13 09:30 | NUR ---
Dr. Arroyo at bedside MD turned off suction and clamped chest tube. Said it would be reevaluated tomorrow. No drainage at this time. Will monitor.
--- NOTE | 2021-01-13 13:09 | NUR ---
Nutrition F/U RD reviewed pt's current EMR record including diet Hx, physician notes, nursing notes, pertinent labs/meds/procedures, care trends, and care activity. Admission Dx: Multiple falls, L rib fracture PMH: osteoporosis, Parkinson's Dz dementia and HTN per physician notes Pt also found w/ L-sided pneumothorax per physician notes 01/13 MD notes: DM SARS-CoV-2 Ag (Rapid) Negative 01/08 Current Diet Order/Nutrition Support: Puree x1 day + PPN: D40%, AA10% at 45 ml/hr via peripheral line Subjective Info: Per MD note: Pt remains confused, continue aspiration precaution. Per MD review: Pt had PICC line and on TPN. abd is soft and non-distended w/ active bowel sounds; no BM noted; Stefan scale: 12; lateral L abdomen and chest ecchymosis, L R arm ecchymosis, L R heel erythema, L R knee ecchymosis, L wrist skin tear, posterior head dry scab and ecchymosis, R elbow ecchymosis per EMR review. PO intake average of 0% x9 meals. Current PPN: D40%, AA10% at 45 ml/hr, no current order for lipid in place. RD visit at bedside w/ RN Ana Cristina who reported that pt did not eat anything this am from the pureed diet. RD also s/w pharmD about rec of adding lipid in PN order to better meet estimated needs. Pt w/ PICC line and RD also asked pharmD to change PN order to central line. Pertinent Medications: lovenox, KCl/D5%/NaCl IV at 20 ml/hr (81 kcal/day), protonix IV Pertinent Labs: 01/13: Na 138 WNL, K 3.5 WNL, BUN 18 WNL, Cre 0.58 WNL, BG 166 H, POC BG 120 H, TG 71 WNL (01/10) Ht: 5'4"/64" Wt: 92#/42 kg (01/09) -- *wt appears stable Body Mass Index: 15.79 kg/m2 %IBW: 77 [place]/Adjusted Body Weight: IBW: 120#/55 kg Weight Status: Emaciated Estimated Energy Expenditure (kcals/day) 5778-6793 kcal/day (30-35 kcal/kg CBW for wt gain, trauma) Estimated Protein Required (g/day) 50-63 gm/day (1.2-1.5 gm/kg CBW for wt gain promotion) Estimated Fluid Required (l/day) 1.3-1.5 L/day (1 ml/kcal/day for maintenance) Problem/Etiology/Signs/Symptoms Malnutrition related to underweight status as evidenced by BMI: 15.9 kg/m2 and 77% of IBW. *ongoing Increased nutritional needs related to trauma as evidenced by multiple falls and estimated nutritional requirements for trauma. *ongoing Suboptimal nutritional intakes related to suspected lack of appetite/cognitive limitations as evidenced by negligible PO intake records/Parkinson's Dz dementia. *ongoing Expected Outcomes/Goals - Monitor TPN tolerance and intake, appetite and PO intakes w/ goal of pt meeting at least 75% of estimated nutritional needs, labs trending WNL, normal GI function, and skin integrity/wt maintenance Dietitian Recommendations * Recommend continue puree diet w/ Ensure Enlive TID (ONS provides 1050 kcal/day, 60 gm protein/day) * Encourage increase PO intakes * Recommend: D40% AA 10% at 45ml/hr (goal rate), IL20% at 10ml/hr via central line Provides: 1430 kcal, 54gm protein, 1320ml total volume/day, GIR: 3.6gmCHO/kg/min. Meets: 97% of upper end of estimated calorie needs and 108% of lower end of estimated protein needs. Follow Up High Risk: F/U in 2-3 days
--- NOTE | 2021-01-13 13:10 | NUR ---
Dietitian Recommendations * Recommend continue puree diet w/ Ensure Enlive TID (ONS provides 1050 kcal/day, 60 gm protein/day) * Encourage increase PO intakes * Recommend: D40% AA 10% at 45ml/hr (goal rate), IL20% at 10ml/hr via central line Provides: 1430 kcal, 54gm protein, 1320ml total volume/day, GIR: 3.6gmCHO/kg/min. Meets: 97% of upper end of estimated calorie needs and 108% of lower end of estimated protein needs. Please see Nutrition F/U note for details
[2021-01-13] MEDS: HYDROmorphone 1 MG/ML INJ. CARTRIDGE IVP PRN (15:27)
--- NOTE | 2021-01-13 15:53 | NUR ---
Agitation/ Pain Patient agitated, yelling and crying. Trying to get our of restraints and remove chest tube. Patient moaning. Given pain medication PRN. Patient is now sleeping. Respirations even and unlabored. Will monitor.
--- NOTE | 2021-01-13 17:42 | NUR ---
MED REFUSAL: Patient drowsy, unable to take afternoon meds. Will monitor.
--- NOTE | 2021-01-13 18:34 | NUR ---
Closing note Patient is sleeping in bed. On 4 L oxygen via nasal cannula and tolerating well with no signs of shortness of breath noted. PICC line in right upper arm infusing TPN and fluids as ordered. Chest tube in place, clamped per MD. Fox catheter attached draining by gravity. Bilateral soft wrist restraints in place. Bed locked and in lowest position. Call light within reach. Sitter present for safety. Fall, safety, and aspiration precautions remain in place. All needs met throughout the shift. Will endorse to night RN.
--- NOTE | 2021-01-13 19:30 | NUR ---
OPENING NOTES: Received patient report from DELVIN De La Paz. Patient in bed, eyes closed, AAOx0, breathing evenly and nonlabored on 3L of oxygen via nasal cannula. No signs of distress at this time. Patient has a PICC line in place through the right upper arm. PICC line dressing dry. No s/s of infection and infiltration. Patient has a chest tube in place through the left chest wall, suction stopped by MD. Patient has erickson catheter intact and draining by gravity. Patient is on bilateral soft wrist restraints due to combative behavior, attempting to pull lines and tubes. Sitter at bedside. Educated patient on plan of care, fall/safety/aspiration precautions and call light system. Bed locked, armed, and at lowest position. Will continue to monitor.
[2021-01-13] MEDS: ENOXAPARIN SODIUM 40 MG/0.4 ML SYRINGE SUBCUT SCH (20:34)
[2021-01-13] MEDS: GABAPENTIN 300 MG CAPSULE PO SCH (20:35)
[2021-01-13] MEDS: METOPROLOL TARTRATE 25 MG TABLET PO SCH (20:36)
[2021-01-13] MEDS: SIMVASTATIN 20 MG TABLET PO SCH (20:36)
[2021-01-13] MEDS: cefTRIAXone 1 GM in D5W 50 ML IV SCH (20:37)
[2021-01-13] MEDS: FAT EMULSIONS 250 ML IV SCH (20:39)
[2021-01-13] MEDS: TPN CENTRAL IV SCH ×9 (20:41)
[2021-01-13] MEDS: K PHOS IV SCH ×9 (20:41)
[2021-01-13] MEDS: [UNRECOGNIZED DRUG - OTHER] IV SCH ×9 (20:41)
[2021-01-13] MEDS: SODIUM ACETATE IV SCH ×9 (20:41)
[2021-01-13] MEDS: CALCIUM CHLORIDE IV SCH ×9 (20:41)
[2021-01-13] MEDS: KCL 20 mEq in D5NS 1000 mL 1,000 ML IV SCH (20:58)
[2021-01-14 00:05] VITALS: BP_SYST 117
[2021-01-14] MEDS: traMADol HCL HCL 50 MG TABLET (ULTRAM) PO SCH ×4 (06:00→23:11)
[2021-01-14] MEDS: CARBIDOPA/LEVODOPA 25/100 MG TABLET PO SCH ×5 (06:00→21:29)
--- NOTE | 2021-01-14 07:31 | NUR ---
OPENING NOTE Received report from night nurse. Patient is sleeping in bed at this time. On 4 L nasal cannula and tolerating well with no signs of shortness of breath. PICC line is patent,infusing fluids, TPN, and lipids as ordered. Chest tube in left chest, no drainage noted. Fox catheter attached, draining by gravity. Bilateral oft wrist restraints in place. Bed locked and in lowest position. Call light within reach. Safety, fall, and aspiration precautions in place. Bed alarm on. Will continue to monitor.
[2021-01-14 07:45] VITALS: BP_SYST 158
[2021-01-14 07:45] LABS: ALANINE AMINOTRANSFERASE 15 U/L (12-78); ALBUMIN 2.4 g/dL (3.4-4.8); ANION GAP 8 (5-15); ASPARTATE AMINOTRANSFERASE 18 U/L (10-37); CALCIUM 8.2 mg/dL (8.4-11.0); CHLORIDE 102 mmol/L (98-107); CREATININE 0.61 mg/dL (0.55-1.30); GLUCOSE 122 mg/dL (70-99); PHOSPHORUS 2.7 mg/dL (2.7-4.5); POTASSIUM 3.7 mmol/L (3.5-5.1); SODIUM SERUM 138 mmol/L (136-145); TOTAL BILIRUBIN 0.4 mg/dL (0.0-1.0); UREA NITROGEN, BLOOD 16 mg/dL (8-21)
[2021-01-14] MEDS: LevALBUTEROL HCL 1.25 MG/0.5 ML *CONC.* VIAL.NEB (XOPENEX CONC.) INH SCH ×3 (07:45→23:00)
[2021-01-14 08:05] VITALS: BP_SYST 158
[2021-01-14] MEDS: LORazepam 1 MG TABLET PO SCH ×2 (08:27→20:43)
[2021-01-14] MEDS: PANTOPRAZOLE SODIUM 40 MG/VIAL (PROTONIX) IVP SCH ×2 (08:27→20:30)
[2021-01-14] MEDS: LOSARTAN POTASSIUM 50 MG TABLET (COZAAR) PO SCH (08:28)
[2021-01-14 12:00] VITALS: BP_SYST 135
--- NOTE | 2021-01-14 12:36 | NUR ---
Lunch Patient ate few bites of lunch and 30% of Ensure. Patient sleeping now. No distress noted. On 2 L nasal cannula, respirations even and unlabored. Will monitor.
[2021-01-14 16:00] VITALS: BP_SYST 134
--- NOTE | 2021-01-14 16:08 | NUR ---
CHEST TUBE REMOVAL Chest tube removed by Dr. Guallap at bedside. Patient tolerated well. No active bleeding. Will continue to monitor patient.
--- NOTE | 2021-01-14 18:30 | NUR ---
Closing note Patient is sleeping in bed. Refused to eat dinner or drink any Ensure. On 2 L oxygen via nasal cannula and tolerating well with no signs of shortness of breath noted. PICC line in right upper arm infusing TPN and fluids as ordered. Fox catheter attached draining by gravity. Bilateral soft wrist restraints in place. Bed locked and in lowest position. Call light within reach. Sitter present for safety. Fall, safety, and aspiration precautions remain in place. All needs met throughout the shift. Will endorse to night RN.
--- NOTE | 2021-01-14 19:20 | NUR ---
Opening Note: Patient is awake, resting in bed. Refusing to eat dinner at this time. On 2 L oxygen via nasal cannula and tolerating well with no signs of shortness of breath noted. PICC line in right upper arm infusing TPN and fluids as ordered. Fox catheter attached draining by gravity. Bilateral soft wrist restraints in place. Bed locked and in lowest position. Call light within reach. Sitter present for safety. Fall, safety, and aspiration precautions in place. Will continue to monitor patient.
[2021-01-14 20:00] VITALS: BP_SYST 155
--- NOTE | 2021-01-14 20:00 | NUR ---
Dr Rodriguez at bedside attempted feeding the patient, patient refused. Will not take anything PO dinner. Per dayshift nurse, patient only had small sip of ensure.
[2021-01-14] MEDS: KCL 20 mEq in D5NS 1000 mL 1,000 ML IV SCH (20:29)
[2021-01-14] MEDS: [UNRECOGNIZED DRUG - OTHER] IV SCH ×9 (20:29)
[2021-01-14] MEDS: FAT EMULSIONS 250 ML IV SCH (20:29)
[2021-01-14] MEDS: K PHOS IV SCH ×9 (20:29)
[2021-01-14] MEDS: TPN CENTRAL IV SCH ×9 (20:29)
[2021-01-14] MEDS: SODIUM ACETATE IV SCH ×9 (20:29)
[2021-01-14] MEDS: CALCIUM CHLORIDE IV SCH ×9 (20:29)
[2021-01-14] MEDS: cefTRIAXone 1 GM in D5W 50 ML IV SCH (20:30)
[2021-01-14] MEDS: ENOXAPARIN SODIUM 40 MG/0.4 ML SYRINGE SUBCUT SCH (20:31)
[2021-01-14] MEDS: SIMVASTATIN 20 MG TABLET PO SCH (20:44)
[2021-01-14] MEDS: METOPROLOL TARTRATE 25 MG TABLET PO SCH (20:44)
[2021-01-14] MEDS: GABAPENTIN 300 MG CAPSULE PO SCH (20:44)
--- NOTE | 2021-01-14 20:45 | NUR ---
RN Note: refusing PO meds/food Pt refusing to take anything PO (food/medications crushed with applesauce), patient just continues to scream when you talk to her. She looks in pain but will not answer my questions or explain what is wrong or why she will not eat. Pt was continuously screaming and swinging her right arm/fist towards me to hit me as I was accessing her PICC line to give her IV medications, as well as pain medication to relax patient. Pt refusing to take PO medications DESPITE education given for why those medications are indicated. Will continue to monitor patient.
[2021-01-14] MEDS: HYDROmorphone 1 MG/ML INJ. CARTRIDGE IVP PRN (20:49)
[2021-01-15] VITALS: BP_SYST 100
--- NOTE | 2021-01-15 00:30 | NUR ---
RN Note: Pt vital signs stable. pt asleep. Will continue to monitor.
[2021-01-15] MEDS: CARBIDOPA/LEVODOPA 25/100 MG TABLET PO SCH ×6 (05:07→23:25)
[2021-01-15] MEDS: traMADol HCL HCL 50 MG TABLET (ULTRAM) PO SCH ×4 (05:07→23:25)
[2021-01-15] MEDS: HYDROmorphone 1 MG/ML INJ. CARTRIDGE IVP PRN (05:10)
--- NOTE | 2021-01-15 05:22 | NUR ---
RN Note: pt awoke in pain screaming after sleeping for a long time. Tried to give pt PO meds (sinemet, ultram) crushed via apple sauce PT continuously Spitting it out on the blankets and screaming. Gave pt IV pain med which works to relax patient.
--- NOTE | 2021-01-15 06:28 | NUR ---
Closing Note: Patient is confused, resting in bed. On 2 L oxygen via nasal cannula and tolerating well with no signs of shortness of breath noted. PICC line in right upper arm infusing TPN and fluids as ordered. Fox catheter attached draining by gravity. Bilateral soft wrist restraints in place without s/s of injury. Bed locked and in lowest position. Call light within reach. Sitter present for safety. Fall, safety, and aspiration precautions maintained throughout shift. Will endorse to dayshift RN.
[2021-01-15 06:54] LABS: BASOPHILS % (AUTO) 0.5 % (0.0-2.0); EOSINOPHILS % (AUTO) 0.8 % (0.0-4.0); HEMATOCRIT 27.3 % (36-48); HEMOGLOBIN 9.1 g/dL (12.0-16.0); LYMPHOCYTES # (AUTO) 0.3 K/uL (1.0-5.5); LYMPHOCYTES % (AUTO) 5.4 % (20.5-51.5); MEAN CORPUSCULAR HEMOGLOBIN 31 pg (27-31); MEAN CORPUSCULAR HGB CONC 34 % (32-36); MEAN CORPUSCULAR VOLUME 94 fL (79.0-98.0); MONOCYTES # (AUTO) 0.3 K/uL (0.0-1.0); MONOCYTES % (AUTO) 5.3 % (1.7-9.3); NEUTROPHILS # (AUTO) 5.3 K/uL (1.8-7.7); PLATELET COUNT (AUTO) 240 K/uL (130-430); RED BLOOD CELL COUNT(AUTO) 2.91 MIL/uL (4.2-6.2); RED CELL DISTRIBUTION WIDTH 12.8 % (9.0-15.0)
[2021-01-15 07:07] LABS: ALANINE AMINOTRANSFERASE 10 U/L (12-78); ALBUMIN 2.2 g/dL (3.4-4.8); ANION GAP 9 (5-15); ASPARTATE AMINOTRANSFERASE 13 U/L (10-37); CALCIUM 7.9 mg/dL (8.4-11.0); CHLORIDE 101 mmol/L (98-107); CREATININE 0.61 mg/dL (0.55-1.30); GLUCOSE 146 mg/dL (70-99); PHOSPHORUS 2.9 mg/dL (2.7-4.5); POTASSIUM 3.3 mmol/L (3.5-5.1); SODIUM SERUM 137 mmol/L (136-145); TOTAL BILIRUBIN 0.4 mg/dL (0.0-1.0); UREA NITROGEN, BLOOD 16 mg/dL (8-21)
[2021-01-15] MEDS: LevALBUTEROL HCL 1.25 MG/0.5 ML *CONC.* VIAL.NEB (XOPENEX CONC.) INH SCH ×3 (07:37→23:10)
--- NOTE | 2021-01-15 08:00 | NUR ---
Initial note: Patient is sleeping on bed comfortable, no sign of acute distress. On Oxygen 2 L/M via NC, no SOB. She has IVF, D5 NS + 20 mEq of KCL running at 20 ml/hr, TPN IV at 45 Ml/Hr, Lipid IV at 10 Ml/Hr, all infusing well via right Upper arm PICC line, Dressing dry-clean. Fox Catheter is in place with clear yellow urine out put.
[2021-01-15 08:03] VITALS: BP_SYST 148
[2021-01-15] MEDS: PANTOPRAZOLE SODIUM 40 MG/VIAL (PROTONIX) IVP SCH ×2 (08:20→21:16)
[2021-01-15] MEDS: LOSARTAN POTASSIUM 50 MG TABLET (COZAAR) PO SCH ×2 (08:20→09:00)
[2021-01-15] MEDS: LORazepam 1 MG TABLET PO SCH ×4 (08:20→20:50)
[2021-01-15 12:11] VITALS: BP_SYST 167
--- NOTE | 2021-01-15 13:22 | NUR ---
MD leblanc/ LUISA Fox: Dr. Rodriguez makes round. Inform MD that patient's son wants to speak to him. states that he will speak to caseworker protective services then he will call family. also has ordered to remove Fox catheter.
[2021-01-15] MEDS ORDERED: BISACODYL 10 MG/SUPPOSITORY RC PRN (14:00)
[2021-01-15] MEDS ORDERED: SODIUM PHOSPHATE,MONO-DIBASIC 133 ML ENEMA RC PRN (14:00)
--- NOTE | 2021-01-15 14:27 | NUR ---
Fox catheter is removed. Patient tolerates well. Will continue monitor voiding.
--- NOTE | 2021-01-15 16:03 | NUR ---
RN round: Patient is sleeping comfortable, no sign of distress. Patient has not voided yet .Will F/U voiding.
[2021-01-15 16:12] VITALS: BP_SYST 128
--- NOTE | 2021-01-15 18:57 | NUR ---
Closing note: Patient is stable , no sign of distress. She has very poor appetite, on TPN IV at 45 ml/hr, Lipid at 10 ml/hr and the same IVF<D5 NS + 20 mEq of KCL at 20 ml/hr. Patient has voided x1 after the catheter removed.
--- NOTE | 2021-01-15 19:30 | NUR ---
Opening note Received pt awake and alert. Verbally responsive and confused and noted with slurred speech. No distress or discomfort noted, resting comfortably. Received endorsement pt refuses 2L NC, currently stating at 96% RA, tolerating well. Has PIC line with no complications. Bed to lowest position with bed alarm on, bilateral rails up. On safety/fall, aspiration precaution. Pt on D.O, nurse present at all times.
[2021-01-15 19:37] VITALS: BP_SYST 158
[2021-01-15] MEDS: ENOXAPARIN SODIUM 40 MG/0.4 ML SYRINGE SUBCUT SCH (20:48)
[2021-01-15] MEDS: METOPROLOL TARTRATE 25 MG TABLET PO SCH (20:49)
[2021-01-15] MEDS: GABAPENTIN 300 MG CAPSULE PO SCH (20:49)
[2021-01-15] MEDS: SIMVASTATIN 20 MG TABLET PO SCH (20:50)
[2021-01-15] MEDS ORDERED: K PHOS IV SCH ×10 (21:00)
[2021-01-15] MEDS ORDERED: [UNRECOGNIZED DRUG - OTHER] IV SCH ×10 (21:00)
[2021-01-15] MEDS ORDERED: TPN CENTRAL IV SCH ×10 (21:00)
[2021-01-15] MEDS ORDERED: SODIUM CHLORIDE IV SCH ×10 (21:00)
[2021-01-15] MEDS: KCL 20 mEq in D5NS 1000 mL 1,000 ML IV SCH (21:08)
[2021-01-15] MEDS: cefTRIAXone 1 GM in D5W 50 ML IV SCH (21:08)
[2021-01-15] MEDS: FAT EMULSIONS 250 ML IV SCH (21:09)
[2021-01-16 00:15] VITALS: BP_SYST 125
[2021-01-16] MEDS: traMADol HCL HCL 50 MG TABLET (ULTRAM) PO SCH ×3 (05:54→17:02)
[2021-01-16] MEDS: CARBIDOPA/LEVODOPA 25/100 MG TABLET PO SCH ×4 (05:55→17:01)
--- NOTE | 2021-01-16 06:12 | NUR ---
closing note Pt in bed awake and moaning after am care, easily aroused by voice and tactile stimuli. On RA stating 96% stable. PICC line patent and intact, no complication noted. Bed to lowest with bilateral side rails up. Call light within reach. Nurse at bedside at all times. On safety/fall/aspiration precaution.
[2021-01-16] MEDS: LevALBUTEROL HCL 1.25 MG/0.5 ML *CONC.* VIAL.NEB (XOPENEX CONC.) INH SCH ×2 (07:27→15:52)
[2021-01-16 07:38] VITALS: BP_SYST 151
[2021-01-16 07:51] LABS: ANION GAP 7 (5-15); ASPARTATE AMINOTRANSFERASE 15 U/L (10-37); CALCIUM 7.9 mg/dL (8.4-11.0); CHLORIDE 103 mmol/L (98-107); CREATININE 0.63 mg/dL (0.55-1.30); GLUCOSE 139 mg/dL (70-99); PHOSPHORUS 3.1 mg/dL (2.7-4.5); POTASSIUM 3.4 mmol/L (3.5-5.1); SODIUM SERUM 137 mmol/L (136-145); TOTAL BILIRUBIN 0.2 mg/dL (0.0-1.0); UREA NITROGEN, BLOOD 16 mg/dL (8-21)
[2021-01-16 08:13] LABS: ALANINE AMINOTRANSFERASE 7 U/L (12-78)
[2021-01-16 08:51] LABS: TRIGLYCERIDES 53 mg/dL (30-150)
[2021-01-16] MEDS: PANTOPRAZOLE SODIUM 40 MG/VIAL (PROTONIX) IVP SCH (08:54)
[2021-01-16] MEDS: LOSARTAN POTASSIUM 50 MG TABLET (COZAAR) PO SCH (10:24)
[2021-01-16] MEDS: LORazepam 1 MG TABLET PO SCH (10:25)
--- NOTE | 2021-01-16 11:30 | NUR ---
Note Notified Pharmacist that [facility], will not need TPN/Lipids tonight.
--- NOTE | 2021-01-16 11:46 | NUR ---
Pt accepted at [facility] room [id number] for report [phone] [facility] to transport at 6PM. discharge disposition [phone]
[2021-01-16 12:00] VITALS: BP_SYST 156
--- NOTE | 2021-01-16 12:25 | NUR ---
NOTE Pt's son Alex came to visit pt at bedside. Informed Alex that pt will be transferred to [facility] today at 1830. Pt's son left the bedside after 20 minutes. Pt gone back to sleep at this time. Call light within reach.
[2021-01-16 16:00] VITALS: BP_SYST 155
[2021-01-16 17:11] VITALS: BP_SYST 140
--- NOTE | 2021-01-16 18:00 | NUR ---
NOTE Pt's son Alex at bedside at 1700. Informed pt's son that pt was being transferred to [facility] today at 1800. Pt's MAMTA PICC was saline locked, flushed with NS 10cc/each and capped. Pt dressed in orange gown and sheet. Pt has adult brief.on. Report was given to Gemma Shirley RN at [facility]. Discharge packet ready and at nurses' station. EMT from [facility] on the floor and report given and discharge packet given to EMT to give to [facility] staff for continuation of care. Pt stable. No severe left chest pain/discomfort noted Pt was checked on q1' and PRN all shift. RN was sitter at bedside all shift. Pt's bed in low position and bed alarm on all shift.
--- NOTE | 2021-01-16 18:05 | NUR ---
Note Pt off the floor via gurney with discharge packet.
[2021-01-16] MEDS ORDERED: TPN CENTRAL IV SCH ×10 (21:00)
[2021-01-16] MEDS ORDERED: K PHOS IV SCH ×10 (21:00)
[2021-01-16] MEDS ORDERED: SODIUM CHLORIDE IV SCH ×10 (21:00)
[2021-01-16] MEDS ORDERED: [UNRECOGNIZED DRUG - OTHER] IV SCH ×10 (21:00)
== END 2021-01-16 18:05 | DRG 183 ==
LOC: SED 13:54 → STU 18:18
PROVIDERS: ADMIT Family Medicine; ATTEND Family Medicine
PROC: 0W9B3ZZ Drainage of Left Pleural Cavity, Percutaneous Approach (ICD-10-PCS; principal; 2021-01-09)
PROC: 02HV33Z Insertion of Infusion Device into Superior Vena Cava, Percutaneous Approach (ICD-10-PCS; 2021-01-09)
DX: S22.42XA Multiple fractures of ribs, left side, initial encounter for closed fracture (principal); J18.9 Pneumonia, unspecified organism; G93.41 Metabolic encephalopathy; J96.01 Acute respiratory failure with hypoxia; S27.0XXA Traumatic pneumothorax, initial encounter; I10 Essential (primary) hypertension; Z20.822 Contact with and (suspected) exposure to COVID-19; M81.0 Age-related osteoporosis without current pathological fracture; G20 Parkinson's disease; F02.80 Dementia in other diseases classified elsewhere, unspecified severity, without behavioral disturbance, psychotic disturbance, mood disturbance, and anxiety; J98.2 Interstitial emphysema; W18.39XA Other fall on same level, initial encounter; Z88.2 Allergy status to sulfonamides; Z79.899 Other long term (current) drug therapy; Y93.89 Activity, other specified; Y92.89 Other specified places as the place of occurrence of the external cause; Y99.8 Other external cause status
CPT/HCPCS: 36415; 70450-TC; 71045; 71250-TC; 71260-TC; 73030; 76376; 80048; 80053; 81003; 82550; 82553; 82962; 83605; 83735; 84100; 84478; 84484; 85025; 85610-TC; 85730-TC; 87040-TC; 87081; 87086; 93005; 94640; 94760; 96365; 96372; 99285; C9113; G0378; J0456; J0610; J0696; J1170; J1630; J1650; J1885; J2060; J3475; J3480; J7050; J7060; J7131; J7612; Q9967